=== PATIENT | male | born 1980 | race Two or more races ===

== ENCOUNTER 2024-09-04 17:11 | Emergency (ER) | payer MEDICARE, MEDICAID, SELFPAY ==
[2024-09-04 17:18] VITALS: BP 175/122; PULSE 104; RESP 20; TEMP 37.1; O2SAT 97; BMI 36.3
[2024-09-04 18:06] VITALS: BP 170/101; PULSE 110; RESP 18; TEMP 37.1; O2SAT 98
--- NOTE | 2024-09-04 18:32 | EKG_ITS ---
[facility] Test Date: 2024-09-04 Pat Name: KRYSTA HEALY Department: Room: - Gender: Male Screen Maker: : [id number] Requested By: Denia Conner Order Number: [id number] Reading MD: Denia Conner Measurements Intervals [place] Rate: 96 P: 2 NV: 146 QRS: -15 QRSD: 81 T: 121 QT: 338 QTc: 428 Interpretive Statements SINUS RHYTHM POSSIBLE LEFT ATRIAL ENLARGEMENT [-0.1mV P-WAVE IN V1/V2] LEFT VENTRICULAR HYPERTROPHY AND ST-T CHANGE [VOLTAGE CRITERIA PLUS ST/T ABNORMALITY] No previous ECG available for comparison /store/[email or web address]/[id number].pdf
[2024-09-04 18:40] VITALS: BP 169/100; PULSE 106; RESP 20; TEMP 37.1; O2SAT 95
--- NOTE | 2024-09-04 19:24 | EDRME_ITS ---
Rapid Medical Screening Exam RME Arrival date/time: 09/04/24 17:11 Chief Complaint: Medical Clearance Time Seen by Provider: 09/04/24 19:40 Vital signs: Vital Signs Temperature 98.7 F 09/04/24 17:18 Pulse Rate 104 H 09/04/24 17:18 Respiratory Rate 20 09/04/24 17:18 Blood Pressure 175/122 H 09/04/24 17:18 Pulse Oximetry (%) 97 09/04/24 17:18 Oxygen Delivery Method Nasal Cannula 09/04/24 17:18 E Narrative: Patient is a 44-year-old male with PMH of HTN, hyperlipidemia, diabetes mellitus on insulin, s/p kidney transplant in 2019 who was brought in from [facility] for medical clearance. Patient was found to have elevated BP. The patient himself is denying any complaints or symptoms today. He reported about 3/10 rated right lower abdominal pain earlier but this has self-resolved. Patient denied any chest pain or chest discomfort. Reported vitals included BP 184/119, HR 109, RR 16, Temp 98.2, O2 sat 96% on room air, BG 297. While in ED BP 169/100, EKG showed sinus rhythm at a rate of 96, left ventricular hypertrophy pattern, no changes from prior EKG. Patient determined medically clear for longterm. Patient to have bring all home medications to be continued as prescribed.
[2024-09-04 19:47] VITALS: BP 165/107; PULSE 101; RESP 18; O2SAT 95
--- NOTE | 2024-09-04 19:49 | PC.NURSE ---
[employer] officer interviewing pt at this time; Pt's discharge is ready, will DC when done.
--- NOTE | 2024-09-30 05:32 | PD.EDMEDCL ---
ED Medical Clearance RME/HPI General Chief complaint: Medical Clearance Stated complaint: MEDICAL CLEARANCE Time Seen by Provider: 09/04/24 19:40 Arrival date/time: 09/04/24 17:11 Limitations: no limitations RME / HPI RME / HPI Narrative: Patient is a 44-year-old male with PMH of HTN, hyperlipidemia, diabetes mellitus on insulin, s/p kidney transplant in 2019 who was brought in from law enforcement for medical clearance. Patient was found to have elevated BP. The patient himself is denying any complaints or symptoms today. He reported about 3/10 rated right lower abdominal pain earlier but this has self-resolved. Patient denied any chest pain or chest discomfort. Reported vitals included BP 184/119, HR 109, RR 16, Temp 98.2, O2 sat 96% on room air, BG 297. While in ED BP 169/100, EKG showed sinus rhythm at a rate of 96, left ventricular hypertrophy pattern, no changes from prior EKG. Patient determined medically clear for nursing home. Patient to have bring all home medications to be continued as prescribed. Related Information Home Medications ?Medication ?Instructions ?Recorded ?Confirmed ezetimibe 10 mg tablet 10 mg PO QDAY 04/05/23 04/05/23 fluconazole 200 mg tablet 200 mg PO QDAY 04/05/23 04/05/23 mycophenolate mofetil 250 mg 1,000 mg PO BID 04/05/23 04/05/23 capsule omeprazole 40 mg capsule,delayed 40 mg PO HS 04/05/23 04/05/23 release prednisone 5 mg tablet 5 mg PO QDAY 04/05/23 04/05/23 tacrolimus 0.5 mg capsule, 0.5 mg PO BID 04/05/23 04/05/23 immediate-release Previous Rx's ?Medication ?Instructions ?Recorded aspirin 81 mg capsule 81 mg PO QDAY #30 caps 04/08/23 atorvastatin 80 mg tablet 80 mg PO QDAY #30 tabs 04/08/23 metoprolol tartrate 100 mg tablet 100 mg PO BID #60 tabs 04/08/23 ticagrelor 90 mg tablet 90 mg PO BID #30 tabs 04/08/23 Allergies Allergy/AdvReac Type Severity Reaction Status Date / Time metformin Allergy Intermediate Hives Verified 04/04/23 19:12 Review of Systems Review of Systems Systems Reviewed: All systems reviewed, normal except as documented ED Exam General Limitations: Present no limitations General appearance: Present alert and in no apparent distress Head Head exam: Present atraumatic Eye Eye exam: Present normal appearance, PERRL and EOMI ENT ENT exam: Present normal exam, normal oropharynx and mucous membranes moist Neck Neck exam: Present normal inspection, full ROM and trachea midline Chest Chest inspection: Present normal inspection and symmetric chest wall rise Respiratory Respiratory exam: Present normal lung sounds bilaterally Cardiovascular Cardiovascular exam: Present regular rate, normal rhythm and normal heart sounds Abdominal Exam Abdominal exam: Present soft and normal bowel sounds Extremities Exam Extremities exam: Present normal inspection and full ROM Back Exam Back exam: Present normal inspection and full ROM Neurological Exam Neurological exam: Present alert, oriented X3 and CN II-XII intact Psychiatric Psychiatric exam: Present normal affect and normal mood Skin Skin exam: Present warm, dry, intact and normal color Course Quality Measures none Orders Category Date Time Status EKG (ED ONLY) *Do not use* NOW Care 09/04/24 18:32 Completed EKG (ED Only) Stat Exams 09/04/24 18:32 Draft Vital Signs Vital signs: Vital Signs Temperature 98.7 F 09/04/24 17:18 Pulse Rate 104 H 09/04/24 17:18 Respiratory Rate 20 09/04/24 17:18 Blood Pressure 175/122 H 09/04/24 17:18 Pulse Oximetry (%) 97 09/04/24 17:18 Oxygen Delivery Method Nasal Cannula 09/04/24 17:18 Medical Clearance Patient data External records reviewed:: None Clinical information provided by:: patient and EMS Social determinants that could affect healthcare access:: substance use Patient has the following chronic illnesses:: Hypertension, high cholesterol How is presenting disease/condition affected by chronic disease/condition?: uneffected by Evaluation data The following diagnostics were reviewed and interpreted by me:: EKG tracing(s) Lab and/or radiology exams considered but not ordered:: None patient refused Interpretation Summary: EKG shows no ST elevation RI Medications / Prescriptions Medications or Prescriptions considered but not ordered:: None patient refused Medication administrations:: None Consultations Consultation(s) initiated? (list below): No Consultation #1 (Physician, Specialty, Details): None Diagnosis Medical Clearance Differential Diagnosis: other (Noncompliant with medications, psychiatric history, hypertension,) Most likely diagnosis given after review of the tests above:: Noncompliant with meds, medically cleared Admission Indicated Admission indicated?: not indicated Explain why admission is indicated or not indicated:: Patient medically cleared for nursing home. Admission Request Was there a request for admission?: No Disposition Plan Disposition Plan: other (specify) (Patient going to nursing home.) Discharge Plan Plan Patient Disposition: [facility]/Court/Law Patient condition on transfer: Stable Prescriptions/Referrals Prescriptions/Med Rec: No Action mycophenolate mofetil 250 mg Capsule 1,000 mg PO BID fluconazole 200 mg Tablet 200 mg PO QDAY prednisone 5 mg Tablet 5 mg PO QDAY omeprazole 40 mg Capsule,Delayed Release(Dr/Ec) 40 mg PO HS tacrolimus 0.5 mg Capsule 0.5 mg PO BID ezetimibe 10 mg Tablet 10 mg PO QDAY aspirin 81 mg capsule 81 mg PO QDAY Qty: 30 2RF ticagrelor 90 mg tablet 90 mg PO BID Qty: 30 2RF atorvastatin 80 mg tablet 80 mg PO QDAY Qty: 30 5RF metoprolol tartrate 100 mg tablet 100 mg PO BID Qty: 60 5RF Problem List Clinical Impression: Medical clearance for incarceration, Hypertension Patient/Caregiver Discharge Instructions Education Materials: What Is High Blood Pressure? Additional Instructions: Patient is medically cleared. Please see primary care provider for follow up of blood pressure. Patient is to have his bring all medications to the facility so that he can continue his scheduled doses. He is on important medications for his heart and kidney. El paciente tiene el pushpa m?dica. Consulte a rivera proveedor de atenci?n primaria para realizar un seguimiento de la presi?n arterial. El paciente debe pedirle a irvera esposa que traiga todos los medicamentos al centro para que pueda continuar con las dosis programadas. Est? tomando medicamentos importantes para rivera coraz?n y ri??n. Print Language: Russian
== END 2024-09-04 19:56 ==
PROVIDERS: Emergency Provider Emergency Medicine
DX: Z02.89 Encounter for other administrative examinations (principal); I11.9 Hypertensive heart disease without heart failure; R94.31 Abnormal electrocardiogram [ECG] [EKG]; E78.00 Pure hypercholesterolemia, unspecified
CPT/HCPCS: 93005; 99283